=== PATIENT | female | born 1950 | race Caucasian/White ===

== ENCOUNTER 2017-01-19 08:00 | Outpatient (CLI) | payer MEDICARE ==
--- NOTE | 2017-01-19 14:36 | NM ---
NUCLEAR MEDICINE HIDA SCAN: Date: 01/19/17 HISTORY: Right upper quadrant abdominal pain. COMPARISON: None. TECHNIQUE: Abdominal imaging was performed after intravenous administration of 5.1 technetium-99m mebrofenin. S ubsequently, after 1 hour, 8 oz of Ensure was given orally to evaluate for ejection fraction. FINDINGS: There is normal hepatic uptake of radiotracer with excretion to the biliary system. The gallbladder is visualized within 21 minutes. Common bile duct is patent. Cystic duct is patent. Ejection fractio n calculated to be 88%. IMPRESSION: Normal nuclear medicine HIDA scan and ejection fraction. POS: [facility]
== END 2017-01-19 08:01 | disposition home or self-care (01) ==
LOC: NM 08:00
PROVIDERS: ATTEND Internal Medicine Gastroenterology
DX: R10.11 Right upper quadrant pain (principal); R11.0 Nausea
CPT/HCPCS: 78227; A9537

== ENCOUNTER 2017-08-09 17:31 | Inpatient (IN) | payer MEDICARE ==
[2017-08-09] MEDS ORDERED: Acetaminophen 325 MG TAB PO PRN (18:50)
[2017-08-09] MEDS ORDERED: Dicyclomine 10 MG CAP PO PRN (18:51)
[2017-08-09 19:07] LABS: Hemoglobin 12.3 g/dL (12.0-16.0); Mean Corpuscular HGB CONC 34.2 g/dL (32.0-36.0); Mean Corpuscular Hemoglobin 28.1 pg (27.0-31.0); Mean Corpuscular Volume 82.2 fl (81.0-99.0); Mean Platelet Volume 7.7 fL (7.4-10.4); Platelet Count 161 thou/uL (130-400); RBC Distribution Width 11.9 % (11.5-14.5); Red Blood Cell (RBC) Count 4.36 mill/uL (4.20-5.40); White Blood Cell (WBC) Count 4.7 thou/uL (4.8-10.8)
[2017-08-09 19:23] LABS: ALT (SGPT) 15 U/L (8-55); AST (SGOT) 25 U/L (5-34); Albumin 3.8 g/dL (3.4-4.8); Alkaline Phosphatase 55 U/L (40-150); Anion Gap 11 mmol/L (10-20); BUN (Urea Nitrogen) 8 mg/dL (9.8-20.1); Bilirubin, Total 0.8 mg/dL (0.2-1.2); Calc. Creatinine Clearance 62 mL/min (70-130); Calcium 8.9 mg/dL (7.8-10.44); Carbon Dioxide 27 mmol/L (23-31); Chloride 101 mmol/L (98-107); Estimated GFR-MDRD 69; Globulin 2.6 g/dL (2.4-3.5); Glucose 104 mg/dL (80-115); Phosphorus 2.8 mg/dL (2.3-4.7); Potassium 3.3 mmol/L (3.5-5.1); Protein, Total 6.4 g/dL (6.0-8.3); Sodium 136 mmol/L (136-145)
[2017-08-09 19:42] LABS: Band 16 % (5-11); Eosinophils 1 % (0-10); Lymphocytes 27 % (21-51); MDiff Complete? YES; Monocytes 6 % (0-10); Neutrophil 37 % (42-75); Ovalocytes SLIGHT = 2-5 cells (100X) (0-1/hpf); PLT Morphology Comment Appears Adequate; Reactive Lymphocytes 12 % (0-10)
[2017-08-09] MEDS: Vancomycin HCl 25 MG/ML Oral PO SCH (20:00)
[2017-08-09] MEDS: D5 0.9% NS w/ 20 mEq KCl 1,000 ML IV SCH (21:08)
[2017-08-09] MEDS: metroNIDAZOLE 500 MG in Premix Bag 1 BAG IVPB SCH (21:09)
[2017-08-09] MEDS: Nortriptyline 10 MG CAP PO SCH (21:11)
[2017-08-10] MEDS: metroNIDAZOLE 500 MG in Premix Bag 1 BAG IVPB SCH ×3 (04:46→20:48)
[2017-08-10] MEDS: D5 0.9% NS w/ 20 mEq KCl 1,000 ML IV SCH ×3 (04:47→20:47)
[2017-08-10] MEDS: Levothyroxine Sodium 25 MCG TAB PO SCH (04:48)
--- NOTE | 2017-08-10 05:52 | HP ---
This is admission note for placement of patient in observation. REASON FOR ADMISSION: Dehydration and C. difficile colitis. HISTORY OF PRESENT ILLNESS: Ms. Romero is a pleasant 66-year-old female who has long history of fu nctional bowel disorder, diarrhea predominant IBS. She had worked up previously with colonoscopy and endoscopy with random biopsies CAT scans for pancreatic insufficiency, celiac, adrenal insuffi ciency, carcinoid syndrome. She has been treated empirically with Xifaxan and other antibiotics for parasites. She has seen Infectious Disease, Gastroenterology in [place], all with the same diagnosis of functional bowel disorder. More recently, I treated her with Lotronex, which worked well, but sh e stopped in 2014. Since then, we treated her with , Xifaxan, and even Librax. Most recentl y, trial of Klonopin and then nortriptyline. She feels when works, then she will stop it, and then w anted to try something different. She called in June with complaints of worsening diarrhea. Ultimately, noted having ongoing diarrhea and having QDX stool sample sent, which was positive for C. difficile antigen and toxin. The day I called her, her diarrhea was better. Following day, she states her diarrhea returned and therefore, we placed her on vancomycin 125 p.o. q.i.d. for 10 days with a probiotic. She has been taking yogurt . She is not sure if she got better or not. She did, but this past week and on Wednesday, she had been mcknight ving diarrhea and severe cramping. [facility] and she was given a stool samples. She also either Wednesday or Wednesday. Wednesday, she went back to the clinic. She did not have i nsurance at [facility], where she had a CAT scan showing colitis with diffuse colonic wal l thickening. Her labs were normal with a BUN and creatinine of 9 and 0.94, albumin of 4. Sodium an d potassium were normal. Lipase was normal. White count was 8.6, hemoglobin was 13. There, she was told she also had a UTI and was given Augmentin and Keflex. Her primary physician, Dr. Usha Sewell, send her labs over this morning with the C. diff on Wednesday when he called the patient, told she was having 10 diarrheal stools every 12 hours all throughout weekend. [place] like weak again today. We had her come in to the office, then here. She has dry mo uth and appears mildly dehydrated and we decided to admit her to the hospital to start therapy for C. diff colitis with dehydration. PAST MEDICAL HISTORY: Functional bowel disorder. PAST SURGICAL HISTORY: Colonoscopy and upper endoscopy with no other surgeries. ALLERGIES: None known. SOCIAL HISTORY: She occasionally drinks wine. She uses some caffeine. She does smoke. FAMILY HISTORY: Negative for inflammatory bowel disease. Negative for GI malignancy or disorders. MEDICATIONS: Nortriptyline, Zofran, levothyroxine, metoprolol, probiotics. PHYSICAL EXAMINATION: GENERAL: Weight 131, down 6 pounds from her visit in 05/2017, temperature is 97, pulse is 95, blood pressure 122/74. HEENT: Oropharynx is dry. LUNGS: Clear. HEART: Regular rate and rhythm without clicks or murmurs. ABDOMEN: Slightly protuberant without rebound or guarding. EXTREMITIES: No clubbing, cyanosis, or edema. SKIN: Turgor is poor. ASSESSMENT: Clostridium difficile colitis. She had this in June and was treated with vancomycin fo r 10 days starting on 07/21/2014, she quit antibiotics on and did well until she developed diarrhe a on the . She has now been sick for 4 days and has not been restarted on therapy yet as her sto ol culture just came back today. PLAN: We will start p.o. vancomycin, IV Flagyl, probiotic. Obtain labs. Replace electrolytes as ne eded. Once her stool frequency comes down and hydration status is improved, we will get her going ho me on a 2-week course of p.o. vancomycin and then a 4-week taper.
[2017-08-10] MEDS: Vancomycin HCl 25 MG/ML Oral PO SCH ×4 (08:38→22:34)
[2017-08-10 12:17] LABS: Magnesium 1.9 mg/dL (1.6-2.6); Phosphorus 2.1 mg/dL (2.3-4.7)
[2017-08-10] MEDS: Enoxaparin Sodium 30 MG/0.3 ML SYRINGE SC SCH (20:49)
[2017-08-10] MEDS: Nortriptyline 10 MG CAP PO SCH (20:50)
--- NOTE | 2017-08-11 01:32 | PRG ---
DATE OF SERVICE: 08/10/2017 SUBJECTIVE: Ms. Romero has done well overnight today. She is receiving IV fluids. She did have s ome toast. She has otherwise been on liquids. She has had no fever, cramping watery diarrhea about 5-6 times today. OBJECTIVE: VITAL SIGNS: Temperature is 97.9, pulse 81, blood pressure 123/71. LUNGS: Clear. HEART: Regular rate and rhythm without clicks or murmurs. ABDOMEN: Soft, nontender. LABORATORY STUDIES: White count was 4.7 on admission. Hemoglobin 12.3, platelet count 161 and 16% b ands, 37% neutrophils, 27% lymphocytes. She had a potassium of 3.3, phosphorus 2.8, magnesium 2. LF Ts normal. BUN and creatinine are 8 and 0.3. ASSESSMENT: 1. Clostridium difficile colitis, second bout, now colitis changes on CAT scan. 2. History of chronic diarrhea from irritable bowel syndrome dating back prior 20 years with extensi ve workup has been negative in the past. PLAN: Continue IV Flagyl, p.o. vancomycin. We will advance diet to bland. We will continue IV flui ds and check electrolytes again tomorrow.
[2017-08-11] MEDS: metroNIDAZOLE 500 MG in Premix Bag 1 BAG IVPB SCH ×3 (05:09→20:53)
[2017-08-11] MEDS: Levothyroxine Sodium 25 MCG TAB PO SCH (05:10)
[2017-08-11] MEDS: D5 0.9% NS w/ 20 mEq KCl 1,000 ML IV SCH ×4 (05:10→22:21)
[2017-08-11 05:12] LABS: Anion Gap 10 mmol/L (10-20); BUN (Urea Nitrogen) Less than 4 mg/dL (9.8-20.1); Calc. Creatinine Clearance 73 mL/min (70-130); Calcium 7.9 mg/dL (7.8-10.44); Carbon Dioxide 24 mmol/L (23-31); Chloride 110 mmol/L (98-107); Estimated GFR-MDRD 80; Glucose 126 mg/dL (80-115); Magnesium 1.9 mg/dL (1.6-2.6); Phosphorus 2.5 mg/dL (2.3-4.7); Potassium 3.3 mmol/L (3.5-5.1); Sodium 141 mmol/L (136-145)
[2017-08-11 05:13] LABS: Band 2 % (5-11); Eosinophils 2 % (0-10); Lymphocytes 33 % (21-51); MDiff Complete? YES; Mean Corpuscular HGB CONC 34.8 g/dL (32.0-36.0); Mean Corpuscular Hemoglobin 28.8 pg (27.0-31.0); Mean Corpuscular Volume 82.7 fl (81.0-99.0); Mean Platelet Volume 7.2 fL (7.4-10.4); Monocytes 12 % (0-10); Neutrophil 50 % (42-75); PLT Morphology Comment Appears Adequate; Platelet Count 156 thou/uL (130-400); RBC Distribution Width 11.7 % (11.5-14.5); Red Blood Cell (RBC) Count 3.83 mill/uL (4.20-5.40); White Blood Cell (WBC) Count 4.1 thou/uL (4.8-10.8)
[2017-08-11] MEDS: Potassium Chloride 20 MEQ TAB PO SCH (08:50)
[2017-08-11] MEDS: Vancomycin HCl 25 MG/ML Oral PO SCH ×4 (08:54→21:15)
[2017-08-11] MEDS: Enoxaparin Sodium 30 MG/0.3 ML SYRINGE SC SCH (20:55)
[2017-08-11] MEDS: Nortriptyline 10 MG CAP PO SCH (20:55)
[2017-08-11] MEDS: Ondansetron HCl/PF 4 MG/2 ML Vial IVP PRN (21:14)
--- NOTE | 2017-08-11 22:04 | PRG ---
DATE OF SERVICE: 08/11/2017 SUBJECTIVE: Ms. Romero states she is no better; however bounce has dropped from 10 a day to 5. Sh e has less cramping. OBJECTIVE: VITAL SIGNS: Temperature is 98, pulse 82, blood pressure 130/80. ABDOMEN: Soft, nontender. She is on the commode. LABORATORY STUDIES: White count 4.1, hemoglobin 11.0, platelet count 156, bands down to 2%. Electro lytes normal. Potassium 3.3, phosphorus 2.5. ASSESSMENT: Diarrhea with . PLAN: Continue above treatment. When the patient's diarrhea slows, we will stop her IV fluids and g et her home.
[2017-08-12] MEDS: D5 0.9% NS w/ 20 mEq KCl 1,000 ML IV SCH ×4 (03:29→16:30)
[2017-08-12] MEDS: Levothyroxine Sodium 25 MCG TAB PO SCH (05:16)
[2017-08-12] MEDS: metroNIDAZOLE 500 MG in Premix Bag 1 BAG IVPB SCH ×3 (05:17→20:32)
[2017-08-12 06:10] LABS: Anion Gap 8 mmol/L (10-20); BUN (Urea Nitrogen) Less than 4 mg/dL (9.8-20.1); Calc. Creatinine Clearance 70 mL/min (70-130); Calcium 8.3 mg/dL (7.8-10.44); Carbon Dioxide 27 mmol/L (23-31); Chloride 108 mmol/L (98-107); Estimated GFR-MDRD 76; Glucose 114 mg/dL (80-115); Magnesium 1.8 mg/dL (1.6-2.6); Phosphorus 2.7 mg/dL (2.3-4.7); Potassium 3.8 mmol/L (3.5-5.1); Sodium 139 mmol/L (136-145)
[2017-08-12] MEDS: Vancomycin HCl 25 MG/ML Oral PO SCH ×4 (08:17→20:33)
[2017-08-12] MEDS: Potassium Chloride 20 MEQ TAB PO SCH (08:46)
--- NOTE | 2017-08-12 19:37 | PRG ---
DATE OF SERVICE: 08/12/2017 SUBJECTIVE: Ms. Romero notes she is doing better. She has noticed her stool color has gotten impr kyleigh, it is little bit more firm. She is having less cramping. She is eating. OBJECTIVE: VITAL SIGNS: Temperature is 98, pulse 77, respirations 16, blood pressure 128/83. LUNGS: Clear. HEART: Regular rate and rhythm without clicks or murmurs. ABDOMEN: Soft, nontender. No rebound or guarding. LABORATORY STUDIES: Sodium 139, potassium 3.8, BUN and creatinine 8 and 4, phosphorus 2.7, magnesium 1.8. ASSESSMENT: 1. Clostridium difficile colitis, improving. 2. History of chronic diarrhea prominent irritable bowel dating back at least probably 20 years with evaluations both here and in [place] by different gastrologists, Infectious Disease doctors, primary care physicians. 3. Anxiety. PLAN: We will increase nortriptyline at bedtime. We will continue other present medications. We wi ll check C. diff to make sure fecal white blood cells and lactoferrin and C. diff toxin resolving. I f she continued to improve, discharge tomorrow.
[2017-08-12] MEDS: Enoxaparin Sodium 30 MG/0.3 ML SYRINGE SC SCH (20:33)
[2017-08-12] MEDS ORDERED: Nortriptyline 10 MG CAP PO SCH (21:00)
[2017-08-13] MEDS: D5 0.9% NS w/ 20 mEq KCl 1,000 ML IV SCH ×2 (01:39→11:44)
[2017-08-13] MEDS: metroNIDAZOLE 500 MG in Premix Bag 1 BAG IVPB SCH ×2 (04:34→11:50)
[2017-08-13] MEDS: Levothyroxine Sodium 25 MCG TAB PO SCH (04:34)
[2017-08-13] MEDS: Potassium Chloride 20 MEQ TAB PO SCH (07:42)
[2017-08-13] MEDS: Vancomycin HCl 25 MG/ML Oral PO SCH ×3 (07:42→16:44)
[2017-08-13] MEDS: Ondansetron HCl/PF 4 MG/2 ML Vial IVP PRN (11:45)
[2017-08-13 16:53] VITALS: BP 144/85; TEMP 98.5
--- NOTE | 2017-08-14 01:01 | DIS ---
Ms. Romero' diarrhea has markedly improved, only one stool today. PHYSICAL EXAMINATION: VITAL SIGNS: Temperature is 98, pulse 77, blood pressure 122/81. LUNGS: Clear. ABDOMEN: Soft, nontender. HEART: Regular rate and rhythm. LABORATORY DATA: No labs today. ASSESSMENT: Clostridium difficile colitis with colitis findings on CT scan, improved clinically very much so with drop in bowel movements from 10 times a day to 1 time a day. PLAN: She will be discharged home on Bentyl p.r.n. 10 mg q.i.d.; Synthroid 25 mcg daily; Toprol-XL 2 5 mg daily; nortriptyline 20 mg at bedtime; vancomycin 125 mg p.o. q.i.d. for 9 days, then taper by 1 tablet every 7 days until down to 1 tablet, and then go every other day for 7 doses, and every third day for 7 doses. This has been explained to her and she was given a prescription. Also, we will st art her on a probiotic. She will follow up in the office in 1-2 weeks.
== END 2017-08-13 17:04 | disposition home or self-care (01) | DRG 373 ==
LOC: 2SW 17:36 → OBSVTOIN 08-10 18:29 → T4-B 08-10 19:49
PROVIDERS: ADMIT Internal Medicine Gastroenterology; ATTEND Internal Medicine Gastroenterology
DX: A04.71 Enterocolitis due to Clostridium difficile, recurrent (principal); F41.9 Anxiety disorder, unspecified; K58.0 Irritable bowel syndrome with diarrhea; E86.0 Dehydration
CPT/HCPCS: 36415; 80048; 80053; 83630; 83735; 84100; 85025; 87045; 87046; 87081; 87177; 87324; 87449; 87899; A4216; J1650; J2405